=== PATIENT | male | born 1990 | race Caucasian/White ===

== ENCOUNTER 2022-03-06 09:20 | Emergency (ER) | payer OTHER, SELFPAY ==
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
[2022-03-06 09:26] VITALS: BP 163/98; PULSE 93; RESP 16; TEMP 36.6; O2SAT 100
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
--- NOTE | 2022-03-06 09:43 | PC.NURSE ---
NURY FROM DR. PINEDA FOR 4MG ZOFRAN AND 4MG MORPHINE.
[2022-03-06 09:46] VITALS: BP 126/88; PULSE 89; RESP 16; O2SAT 98
[2022-03-06] MEDS: MORPHINE SULFATE (*CRX) 4 MG/ML INJ IV PUSH (09:51)
[2022-03-06] MEDS: ONDANSETRON INJ 4 MG/2 ML VIAL IV PUSH (09:51)
== END 2022-03-06 10:18 | disposition short-term general hospital (02) ==
PROVIDERS: Emergency Provider Emergency Medicine
DX: S05.91XA Unspecified injury of right eye and orbit, initial encounter (principal); W38.XXXA Explosion and rupture of other specified pressurized devices, initial encounter
CPT/HCPCS: 70450; 96374; 96375; 99285; J2270; J2405